=== PATIENT | female | born 1945 | race Caucasian/White ===

== ENCOUNTER 2020-10-20 20:00 | Emergency (ER) | payer OTHER, MEDICARE ==
[~2020-10-20] VITALS: Ht 154.9 cm; Wt 70.3 kg
[2020-10-20] MEDS ORDERED: TYLENOL325 M1 PO (21:26)
[2020-10-20 21:39] VITALS: BP 157/92
--- NOTE | 2020-10-21 07:03 | EKG ---
[address] [address] ELECTROCARDIOGRAM REPORT Name: ROMY SLADE Room #: 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
== END 2020-10-20 21:40 | disposition home or self-care (01) ==
LOC: ER 20:00
DX: S80.11XA Contusion of right lower leg, initial encounter (principal); S60.012A Contusion of left thumb without damage to nail, initial encounter; I10 Essential (primary) hypertension; E11.9 Type 2 diabetes mellitus without complications; Z87.891 Personal history of nicotine dependence; Z88.5 Allergy status to narcotic agent; V49.9XXA Car occupant (driver) (passenger) injured in unspecified traffic accident, initial encounter; Y93.89 Activity, other specified; Y92.89 Other specified places as the place of occurrence of the external cause; Y99.8 Other external cause status